=== PATIENT | female | born 1965 | race Caucasian/White ===

== ENCOUNTER 2016-12-09 13:47 | Emergency (ER) | payer MEDICAID, MEDICARE ==
[2016-12-09 13:56] VITALS: TEMP 98.5
--- NOTE | 2016-12-09 14:07 | ED ---
General Adult HPI - General Chief complaint: Chest Pain Stated complaint: Anxiety, Chest Pain Time Seen by Provider: 12/09/16 14:06 Source: patient, RN notes reviewed, old records reviewed Mode of arrival: wheelchair Limitations: no limitations - History of Present Illness Initial comments: This is a 51-year-old female the ER for evaluation. This patient presents for evaluation regarding chest pain and anxiety. Patient states she has no history of heart disease, occasionally smokes weed occasionally drinks alcohol no drug abuse. Patient states she was unaware to court today she has a court date today in a court case, patient states he really anxious of right-sided chest pain down her right arm and is currently concerned that she is having a heart attack. She rates the pain as burning, she feels mild bregma she has mild heartburn which she occasionally gets with her anxiety. But her main concern is that she's having heart attack., no prior history of chest pain - Related Data Home Medications Medication Instructions Recorded Confirmed ALPRAZolam [Xanax] 1 mg PO TID 12/09/16 12/09/16 Albuterol Inhaler [Ventolin Hfa 1 - 2 puff INHALATION RT-Q6H PRN 12/09/16 Inhaler] Cholecalciferol [Vitamin D3] 1,000 unit PO DAILY 12/09/16 12/09/16 Cyanocobalamin [Vitamin B-12] 500 mcg PO DAILY 12/09/16 12/09/16 Gabapentin [Neurontin] 300 mg PO TID 12/09/16 12/09/16 Multivitamins, Thera [Multivitamin 1 tab PO DAILY 12/09/16 12/09/16 (formulary)] Niacin 500 mg PO DAILY 12/09/16 12/09/16 [place]ott-3 Fatty Acids/Fish Oil [Fish 1 cap PO DAILY 12/09/16 12/09/16 Oil 1,000 mg Softgel] PARoxetine HCL [Paxil] 30 mg PO DAILY 12/09/16 12/09/16 Selenium 100 mcg PO DAILY 12/09/16 12/09/16 Tiotropium [place] [Spiriva 1 puff INHALATION RT-DAILY 12/09/16 12/09/16 Respimat] Zolpidem [Ambien] 10 mg PO HS PRN 12/09/16 12/09/16 oxyCODONE-APAP 10-325MG [Percocet 1 tab PO TID 12/09/16 12/09/16 10-325 mg] Allergies Allergy/AdvReac Type Severity Reaction Status Date / Time No Known Allergies Allergy Verified 12/09/16 14:33 Review of Systems ROS Statement: Those systems with pertinent positive or pertinent negative responses have been documented in the HPI. ROS Other: All systems not noted in ROS Statement are negative. Past Medical History Past Medical History: GERD/Reflux, Hearing Disorder / Deafness, Hyperlipidemia, Hypertension, Musculoskeletal Disorder, Osteoarthritis (OA), Respiratory Disorder, Thyroid Disorder Additional Past Medical History / Comment(s): THYROID NODULES testing was negative=no cancer. ACUTE BRONCHITIS in the past. EMPHYSEMA. Carpel Tunnel in bilat. lower arms. 4 herniated discs in back. History of Any Multi-Drug Resistant Organisms: None Reported Past Surgical History: Appendectomy, Tonsillectomy, Tubal Ligation Additional Past Surgical History / Comment(s): THYROID BIOPSY was done and was negative. COLONOSCOPY-COLON POLYPS x 2. Pinatal cyst removed on tailbone. Bottom of right foot surgery to look for glass that pt. had stepped on. 2 D&C' s. Past Anesthesia/Blood Transfusion Reactions: Motion Sickness Past Psychological History: Anxiety, Bipolar, Depression Smoking Status: Current every day smoker Past Alcohol Use History: Rare Past Drug Use History: Cocaine, Heroin, IV Drug Use, Marijuana, Opiates, Prescription Drug Abuse - Past Family History Mother History Unknown: Yes Family Medical History: Respiratory Disorder Additional Family Medical History / Comment(s): pulmonary embolism Father History Unknown: Yes Family Medical History: Coronary Artery Disease (CAD), Osteoarthritis (OA) Sister(s) History Unknown: Yes Family Medical History: Cancer Additional Family Medical History / Comment(s): Bilat. Mastectomy due to breast cancer. General Exam Limitations: no limitations General appearance: alert, in no apparent distress Head exam: Present: atraumatic, normocephalic, normal inspection Eye exam: Present: normal appearance, PERRL, EOMI. Absent: scleral icterus, conjunctival injection, periorbital swelling ENT exam: Present: normal exam, mucous membranes moist Neck exam: Present: normal inspection. Absent: tenderness, meningismus, lymphadenopathy Respiratory exam: Present: normal lung sounds bilaterally. Absent: respiratory distress, wheezes, rales, rhonchi, stridor Cardiovascular Exam: Present: regular rate, normal rhythm, normal heart sounds. Absent: systolic murmur, diastolic murmur, rubs, gallop, clicks GI/Abdominal exam: Present: soft, normal bowel sounds. Absent: distended, tenderness, guarding, rebound, rigid Extremities exam: Present: normal inspection, full ROM, normal capillary refill. Absent: tenderness, pedal edema, joint swelling, calf tenderness Back exam: Present: normal inspection Neurological exam: Present: alert, oriented X3, CN II-XII intact Psychiatric exam: Present: normal affect, normal mood Skin exam: Present: warm, dry, intact, normal color. Absent: rash Course Vital Signs 12/09/16 12/09/16 13:52 14:40 Temperature 98.5 F Pulse Rate 75 83 Respiratory 18 20 Rate Blood Pressure 119/75 129/87 O2 Sat by Pulse 97 Oximetry EKG Findings - EKG Comments: EKG Findings:: EKG shows no signs of 69, [place] 170, QRS 80, QTC 417 Medical Decision Making - Medical Decision Making 51 [id number] chest pain atypical chest pain right-sided chest pain right arm chest pain, EKG troponin x-ray are negative. Patient will be discharged home with anxiety attack secondary to stress of court date - Lab Data Result diagrams: 12/09/16 14:00 Lab Results 12/09/16 Range/Units 14:00 WBC 10.6 (3.8-10.6) k/uL RBC 4.10 (3.80-5.40) m/uL Hgb 13.7 (11.4-16.0) gm/dL Hct 40.6 (34.0-46.0) % MCV 98.9 (80.0-100.0) fL MCH 33.4 (25.0-35.0) pg MCHC 33.8 (31.0-37.0) g/dL RDW 13.0 (11.5-15.5) % Plt Count 291 (150-450) k/uL Neutrophils % 59 % Lymphocytes % 30 % Monocytes % 7 % Eosinophils % 2 % Basophils % 0 % Neutrophils # 6.2 (1.3-7.7) k/uL Lymphocytes # 3.2 (1.0-4.8) k/uL Monocytes # 0.7 (0-1.0) k/uL Eosinophils # 0.2 (0-0.7) k/uL Basophils # 0.1 (0-0.2) k/uL - Radiology Data Radiology results: report reviewed (Chest x-ray is negative for acute disease), image reviewed Disposition Clinical Impression: Atypical chest pain, Anxiety Disposition: HOME SELF-CARE Condition: Good Instructions: Chest Pain (ED) Referrals: None,Stated [Primary Care Provider] - 1-2 days
[2016-12-09] MEDS ORDERED: LORazepam 2 MG/ML SYRINGE IV STA (14:38)
[2016-12-09] MEDS ORDERED: MORPHINE SULFATE 4 MG/ML SYRINGE IV STA (14:38)
[2016-12-09 14:40] VITALS: BP 129/87; PULSE 83; RESP 20
[2016-12-09 14:49] LABS: Basophils # (A) 0.1 k/uL (0-0.2); Basophils % (A) 0 %; CH 33.3; CHCM 33.9; Eosinophils # (A) 0.2 k/uL (0-0.7); Eosinophils % (A) 2 %; HCT 40.6 % (34.0-46.0); HDW 2.11; HGB 13.7 gm/dL (11.4-16.0); Luc # (Auto) 0.27; Luc % (Auto) 3; Lymphocytes # (A) 3.2 k/uL (1.0-4.8); Lymphocytes % (A) 30 %; MCH 33.4 pg (25.0-35.0); MCHC 33.8 g/dL (31.0-37.0); MCV 98.9 fL (80.0-100.0); Mean Platelet Volume 7.6; Monocytes # (A) 0.7 k/uL (0-1.0); Monocytes % (A) 7 %; Neutrophils # (A) 6.2 k/uL (1.3-7.7); Neutrophils % (A) 59 %; WBC 10.6 k/uL (3.8-10.6)
[2016-12-09] MEDS ORDERED: KETOROLAC 30 MG/ML 1 ML VIAL IVP STA (14:55)
[2016-12-09 15:02] LABS: ALT 25 U/L (9-52); AST 16 U/L (14-36); Alkaline Phosphatase 45 U/L (38-126); Anion Gap 10 mmol/L; Blood Urea Nitrogen 13 mg/dL (7-17); Calcium 9.8 mg/dL (8.4-10.2); Carbon Dioxide 26 mmol/L (22-30); Chloride 105 mmol/L (98-107); Glucose 94 mg/dL (74-99); Magnesium 1.7 mg/dL (1.6-2.3); Non-African American GFR(MDRD) >60 (>60 ml/min/1.73 sqM); Potassium 4.3 mmol/L (3.5-5.1); Sodium 141 mmol/L (137-145); Total Bilirubin 0.6 mg/dL (0.2-1.3); Total Protein 7.1 g/dL (6.3-8.2)
--- NOTE | 2016-12-09 15:02 | XR ---
EXAMINATION TYPE: XR chest 2V DATE OF EXAM: 12/09/2016 COMPARISON: 10/19/2012 HISTORY: Shortness of breath TECHNIQUE: Frontal and lateral views of the chest are obtained. FINDINGS: Scattered senescent parenchymal changes noted. Hyperinflation compatible with COPD. No evidence for infiltrate. No evidence for atelectasis. Granuloma right midlung zone and right lower lobe are stable. Heart size is stable. Mediastinal structures are stable and grossly unremarkable. No evidence for hilar prominence. Degenerative changes dorsal spine. IMPRESSION: 1. No evidence for acute pulmonary disease.
[2016-12-09 15:09] LABS: Creatine Kinase 54 U/L (30-135)
[2016-12-09 15:15] LABS: Partial Thromboplastin Time 24.7 sec (22.0-30.0); Prothrombin Time 10.4 sec (9.0-12.0)
[2016-12-09 15:22] LABS: Creatine Kinase MB 0.5 ng/mL (0.0-2.4); Troponin I <0.012 ng/mL (0.000-0.034)
== END 2016-12-09 15:51 | disposition left against medical advice (07) ==
LOC: EC 13:47
DX: R07.89 Other chest pain (principal); F41.9 Anxiety disorder, unspecified; E78.5 Hyperlipidemia, unspecified; E07.9 Disorder of thyroid, unspecified; J43.9 Emphysema, unspecified; F32.9 Major depressive disorder, single episode, unspecified; F17.200 Nicotine dependence, unspecified, uncomplicated; Z79.891 Long term (current) use of opiate analgesic; Z79.899 Other long term (current) drug therapy; Z53.20 Procedure and treatment not carried out because of patient's decision for unspecified reasons
CPT/HCPCS: 99285; 96374; 36415; 93005; 83880; 80053; 82550; 82553; 83690; 83735; 84484; 85025; 85610; 85730; 71020; J2060

== ENCOUNTER 2017-05-17 16:15 | Inpatient (IN) | payer MEDICARE, MEDICAID ==
--- NOTE | 2017-05-17 17:23 | ED ---
General Adult HPI - General Chief complaint: Psychiatric Symptoms Stated complaint: Mental Health Time Seen by Provider: 05/17/17 17:02 Source: patient, RN notes reviewed Mode of arrival: ambulatory Limitations: no limitations - History of Present Illness Initial comments: Patient 52-year-old female who presents emergency room today with chief complaint of needing psychiatric evaluation. Patient does admit to a history of bipolar. She states that she's been more down the last 3 days. She states she's been feeling depressed. Having thoughts of hurting herself. Does admit to thoughts of suicide. Patient admits that she's been more argumentative and angry towards her boyfriend as well. Patient states that she has no intentions of harming anyone else. She denies any other complaints or symptoms currently. Patient denies any recent fever, chills, shortness of breath, chest pain, back pain, abdominal pain, nausea or vomiting, numbness or tingling, headaches or visual changes, or any other complaints. - Related Data Home Medications Medication Instructions Recorded Confirmed ALPRAZolam [Xanax] 1 mg PO AC-TID 12/09/16 05/17/17 Albuterol Inhaler [Ventolin Hfa 1 - 2 puff INHALATION RT-Q6H PRN 12/09/16 Inhaler] PARoxetine HCL [Paxil] 30 mg PO DAILY 12/09/16 05/17/17 Tiotropium [place] [Spiriva 1 cap INHALATION RT-DAILY 12/09/16 05/17/17 Respimat] Zolpidem [Ambien] 10 mg PO HS PRN 12/09/16 05/17/17 oxyCODONE-APAP 10-325MG [Percocet 1 tab PO TID 12/09/16 05/17/17 10-325 mg] Gabapentin 800 mg PO TID 05/17/17 05/17/17 Ibuprofen 800 mg PO TID PRN 05/17/17 05/17/17 Allergies Allergy/AdvReac Type Severity Reaction Status Date / Time No Known Allergies Allergy Verified 05/17/17 16:41 Review of Systems ROS Statement: Those systems with pertinent positive or pertinent negative responses have been documented in the HPI. ROS Other: All systems not noted in ROS Statement are negative. Past Medical History Past Medical History: GERD/Reflux, Hearing Disorder / Deafness, Hyperlipidemia, Hypertension, Musculoskeletal Disorder, Osteoarthritis (OA), Respiratory Disorder, Thyroid Disorder Additional Past Medical History / Comment(s): THYROID NODULES testing was negative=no cancer. ACUTE BRONCHITIS in the past. EMPHYSEMA. Carpel Tunnel in bilat. lower arms. 4 herniated discs in back. History of Any Multi-Drug Resistant Organisms: None Reported Past Surgical History: Appendectomy, Tonsillectomy, Tubal Ligation Additional Past Surgical History / Comment(s): THYROID BIOPSY was done and was negative. COLONOSCOPY-COLON POLYPS x 2. Pinatal cyst removed on tailbone. Bottom of right foot surgery to look for glass that pt. had stepped on. 2 D&C' s. Past Anesthesia/Blood Transfusion Reactions: Motion Sickness Past Psychological History: Anxiety, Bipolar, Depression Smoking Status: Current every day smoker Past Alcohol Use History: Rare Past Drug Use History: Cocaine, Heroin, IV Drug Use, Marijuana, Opiates, Prescription Drug Abuse - Past Family History Mother History Unknown: Yes Family Medical History: Respiratory Disorder Additional Family Medical History / Comment(s): pulmonary embolism Father History Unknown: Yes Family Medical History: Coronary Artery Disease (CAD), Osteoarthritis (OA) Sister(s) History Unknown: Yes Family Medical History: Cancer Additional Family Medical History / Comment(s): Bilat. Mastectomy due to breast cancer. General Exam - General Exam Comments Initial Comments: General: The patient is awake and alert, in no distress, and does not appear acutely ill. Eye: Pupils are equal, round and reactive to light, extra-ocular movements are intact. No nystagmus. There is normal conjunctiva bilaterally. No signs of icterus. Ears, nose, mouth and throat: There are moist mucous membranes and no oral lesions. Neck: The neck is supple, there is no tenderness or JVD. Cardiovascular: There is a regular rate and rhythm. No murmur, rub or gallop is appreciated. Respiratory: Lungs are clear to auscultation, respirations are non-labored, breath sounds are equal. No wheezes, stridor, rales, or rhonchi. Musculoskeletal: Normal ROM, no tenderness. Strength 5/5. Sensation intact. Pulses equal bilaterally 2+. Neurological: A&O x 3. CN II-XII intact, There are no obvious motor or sensory deficits. Coordination appears grossly intact. Speech is normal. Skin: Skin is warm and dry and no rashes or lesions are noted. Psychiatric: Cooperative. Limitations: no limitations Course Vital Signs 05/17/17 16:39 Temperature 98.9 F Pulse Rate 93 Respiratory 18 Rate Blood Pressure 123/97 O2 Sat by Pulse 99 Oximetry Medical Decision Making - Medical Decision Making Patient has been seen by mental health here in the emergency room. They've recommended the patient be admitted. Patient willing to sign herself in. Disposition Clinical Impression: Suicidal ideation Disposition: ADMITTED IP TO THIS HOSP Condition: Stable Referrals: None,Stated [Primary Care Provider] - 1-2 days
[2017-05-17] MEDS ORDERED: ZIPRASIDONE 20 MG VIAL IM PRN (18:39)
[2017-05-17] MEDS ORDERED: ACETAMINOPHEN TAB 325 MG TAB PO PRN (18:39)
[2017-05-17] MEDS ORDERED: MAGNESIUM HYDROXIDE 2,400 MG/10 ML CUP PO PRN (18:39)
[2017-05-17] MEDS ORDERED: MAG HYDROX/AL HYDROX/SIMETH 30 ML CUP PO PRN (18:39)
[2017-05-17 18:51] LABS: Amphetamine Screen,Urine Not Detected (NotDetected); Barbiturate Screen,Urine Not Detected (NotDetected); Benzodiazepines Screen,Urine Detected (NotDetected); Cocaine Screen,Urine Not Detected (NotDetected); Methadone Screen, Urine Not Detected (NotDetected); Opiate Screen,Urine Detected (NotDetected); Oxycodone Screen, Urine Detected (NotDetected); Phencyclidine Screen,Urine Not Detected (NotDetected); Tricyclic Antidepressant,Urine Not Detected (NotDetected); Urn Cannabinoid Scrn Detected (NotDetected)
[2017-05-17 18:54] LABS: Appearance,Urine Clear (Clear); Bilirubin,Urine Negative (Negative); Blood,Urine Negative (Negative); Color,Urine Yellow; Glucose,Urine (UA) Negative (Negative); Ketones,Urine Negative (Negative); Leukocyte Esterase,Urine Trace (Negative); Mucus,Urine Rare /hpf; Nitrite,Urine Negative (Negative); PH, Urine 5.5 (5.0-8.0); Protein,Urine Negative (Negative); RBC,Urine 2 /hpf (0-5); Specific Gravity,Urine 1.025 (1.001-1.035); Squamous Epithelial Cell,Urine 1 /hpf (0-4); Urobilinogen,Urine <2.0 mg/dL (<2.0); WBC,Urine 1 /hpf (0-5)
[2017-05-17] MEDS: LORazepam 1 MG TAB PO SCH (20:58)
[2017-05-17] MEDS: GABAPENTIN 400 MG CAP PO SCH (20:58)
[2017-05-18] MEDS: IBUPROFEN 800 MG TAB PO PRN (06:16)
[2017-05-18] MEDS: LORazepam 1 MG TAB PO PRN ×2 (06:19→14:44)
[2017-05-18] MEDS ORDERED: IPRATROPIUM 0.5 MG/2.5 ML NEBU INHALATION SCH (08:00)
[2017-05-18] MEDS: NICOTINE 14MG/24HR PATCH TRANSDERM SCH (08:41)
[2017-05-18] MEDS: HYDROcodone/APAP 5-325MG 1 EACH TAB PO PRN ×2 (08:41→14:44)
[2017-05-18] MEDS: GABAPENTIN 400 MG CAP PO SCH ×3 (08:42→21:09)
[2017-05-18] MEDS: LORazepam 1 MG TAB PO SCH ×3 (08:43→21:09)
[2017-05-18] MEDS: ALBUTEROL INHALER 60 PUFF/8 GM INHALER INHALATION PRN ×2 (09:00→16:49)
[2017-05-18] MEDS ORDERED: PARoxetine 10 MG TAB PO SCH (09:00)
[2017-05-18] MEDS: TIOTROPIUM 18 MCG/PUFF INHALER INHALATION SCH (09:01)
[2017-05-18 09:29] LABS: Basophils # (A) 0.1 k/uL (0-0.2); Basophils % (A) 1 %; Eosinophils # (A) 0.2 k/uL (0-0.7); Eosinophils % (A) 2 %; HCT 45.4 % (34.0-46.0); HGB 14.4 gm/dL (11.4-16.0); Lymphocytes # (A) 2.2 k/uL (1.0-4.8); Lymphocytes % (A) 27 %; MCH 31.5 pg (25.0-35.0); MCHC 31.6 g/dL (31.0-37.0); MCV 99.6 fL (80.0-100.0); Mean Platelet Volume 7.2; Monocytes # (A) 0.6 k/uL (0-1.0); Monocytes % (A) 8 %; Neutrophils % (A) 61 %; Platelet Count 328 k/uL (150-450); RBC 4.56 m/uL (3.80-5.40); RDW 12.5 % (11.5-15.5); WBC 8.2 k/uL (3.8-10.6)
[2017-05-18 09:37] LABS: ALT 17 U/L (9-52); AST 17 U/L (14-36); Albumin 4.3 g/dL (3.5-5.0); Alkaline Phosphatase 52 U/L (38-126); Anion Gap 11 mmol/L; Blood Urea Nitrogen 20 mg/dL (7-17); Calcium 10.1 mg/dL (8.4-10.2); Carbon Dioxide 30 mmol/L (22-30); Chloride 101 mmol/L (98-107); Cholesterol 216 mg/dL (<200); Glucose 130 mg/dL (74-99); HDL Cholesterol 70 mg/dL (40-60); LDL Cholesterol,Calculated 114 mg/dL (0-99); Potassium 4.6 mmol/L (3.5-5.1); Sodium 142 mmol/L (137-145); Total Bilirubin 0.7 mg/dL (0.2-1.3); Triglycerides 161 mg/dL (<150)
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
--- NOTE | 2017-05-18 17:32 | P.CONS ---
History of Present Illness - Reason for Consult Hyperlipidemia - History of Present Illness 52-year-old pleasant female was admitted for bipolar disorder and patient has history of osteoarthritis in the neck back. Patient denied any gastric reflux disease had history of hyperlipidemia stopped taking her statin which was actually discontinued. Patient LDL is bit elevated at 100 but patient wanted to take statin again. Dietary counseling was provided patient LDL should be well-controlled with diet itself. Patient denied any fever, chills, nausea, vomiting. Review of Systems REVIEW OF SYSTEMS: CONSTITUTIONAL: No fever, no malaise, no fatigue. HEENT: No recent visual problems or hearing problems. Denied any sore throat. CARDIOVASCULAR: No chest pain, orthopnea, PND, no palpitations, no syncope. PULMONARY: No shortness of breath, no cough, no hemoptysis. GASTROINTESTINAL: No diarrhea, no nausea, no vomiting, no abdominal pain. Normoactive bowel sounds. NEUROLOGICAL: No headaches, no weakness, no numbness. HEMATOLOGICAL: Denies any bleeding or petechiae. GENITOURINARY: Denies any burning micturition, frequency, or urgency. MUSCULOSKELETAL/RHEUMATOLOGICAL: Denies any joint pain, swelling, or any muscle pain. ENDOCRINE: Denies any polyuria or polydipsia. The rest of the 14-point review of systems is negative. Past Medical History Past Medical History: GERD/Reflux, Hearing Disorder / Deafness, Hyperlipidemia, Hypertension, Musculoskeletal Disorder, Osteoarthritis (OA), Respiratory Disorder, Thyroid Disorder Additional Past Medical History / Comment(s): THYROID NODULES testing was negative=no cancer. uti. in past had gerd, hypertension and hypercholestremia not a problem now. ACUTE BRONCHITIS in the past. EMPHYSEMA. Carpel Tunnel in bilat. lower arms. 4 herniated discs in back. History of Any Multi-Drug Resistant Organisms: None Reported Past Surgical History: Appendectomy, Tonsillectomy, Tubal Ligation Additional Past Surgical History / Comment(s): THYROID BIOPSY was done and was negative. COLONOSCOPY-COLON POLYPS x 2. Pilonidal cyst removed on tailbone. Bottom of right foot surgery to look for glass that pt. had stepped on. 2 D&C' s. Past Anesthesia/Blood Transfusion Reactions: Motion Sickness Smoking Status: Current every day smoker - Past Family History Mother History Unknown: Yes Family Medical History: Respiratory Disorder Additional Family Medical History / Comment(s): pulmonary embolism Father History Unknown: Yes Family Medical History: Coronary Artery Disease (CAD), Osteoarthritis (OA) Sister(s) History Unknown: Yes Family Medical History: Cancer Additional Family Medical History / Comment(s): Bilat. Mastectomy due to breast cancer. Medications and Allergies Home Medications Medication Instructions Recorded Confirmed Type ALPRAZolam [Xanax] 1 mg PO AC-TID 12/09/16 05/17/17 History Albuterol Inhaler [Ventolin Hfa 1 - 2 puff INHALATION RT-Q6H PRN 12/09/16 History Inhaler] PARoxetine HCL [Paxil] 30 mg PO DAILY 12/09/16 05/17/17 History Tiotropium [place] [Spiriva 1 cap INHALATION RT-DAILY 12/09/16 05/17/17 History Respimat] Zolpidem [Ambien] 10 mg PO HS PRN 12/09/16 05/17/17 History oxyCODONE-APAP 10-325MG [Percocet 1 tab PO TID 12/09/16 05/17/17 History 10-325 mg] Gabapentin 800 mg PO TID 05/17/17 05/17/17 History Ibuprofen 800 mg PO TID PRN 05/17/17 05/17/17 History Allergies Allergy/AdvReac Type Severity Reaction Status Date / Time No Known Allergies Allergy Verified 05/17/17 21:36 Physical Exam Vitals: Vital Signs Temp Pulse Resp BP Pulse Ox 05/18/17 06:18 98.8 F 88 14 112/77 05/17/17 18:40 98.0 F 90 16 137/99 98 PHYSICAL EXAMINATION: GENERAL: The patient is alert and oriented x3, not in any acute distress. Well developed, well nourished. HEENT: Pupils are round and equally reacting to light. EOMI. No scleral icterus. No conjunctival pallor. Normocephalic, atraumatic. No pharyngeal erythema. No thyromegaly. CARDIOVASCULAR: S1 and S2 present. No murmurs, rubs, or gallops. PULMONARY: Chest is clear to auscultation, no wheezing or crackles. ABDOMEN: Soft, nontender, nondistended, normoactive bowel sounds. No palpable organomegaly. MUSCULOSKELETAL: No joint swelling or deformity. EXTREMITIES: No cyanosis, clubbing, or pedal edema. NEUROLOGICAL: Gross neurological examination did not reveal any focal deficits. SKIN: No rashes. Results CBC & Chem 7: 05/18/17 08:46 05/18/17 08:46 Labs: Abnormal Lab Results - Last 24 Hours (Table) 05/17/17 05/17/17 05/18/17 Range/Units 18:24 18:24 08:46 BUN 20 H (7-17) mg/dL Glucose 130 H (74-99) mg/dL Triglycerides 161 H (<150) mg/dL Cholesterol 216 H (<200) mg/dL LDL Cholesterol, Calc 114 H (0-99) mg/dL HDL Cholesterol 70 H (40-60) mg/dL Ur Leukocyte Esterase Trace H (Negative) Urine Mucus Rare H (None) /hpf Urine Opiates Screen Detected H (NotDetected) Ur Oxycodone Screen Detected H (NotDetected) U Benzodiazepines Scrn Detected H (NotDetected) U Marijuana (THC) Screen Detected H (NotDetected) Assessment and Plan Plan: -Mild hyperlipidemia: Dietary counseling was provided patient was started on low -dose statin this can be discontinued if LDL comes down -Bipolar disorder management as per primary service -COPD without any acute exacerbation can use to smoke" in cessation counseling was provided -Multiple nonprescription drug abuse: Counseling was provided Thank you for letting me participate in patient's care, no further recommendations from medicine perspective we'll sign off at this time please call us back if needed
[2017-05-18 20:30] LABS: Hemoglobin A1C 5.4 % (4.0-6.0)
[2017-05-18] MEDS: ATORVASTATIN 20 MG TAB PO SCH (21:09)
[2017-05-19] MEDS: HYDROcodone/APAP 5-325MG 1 EACH TAB PO PRN ×3 (06:16→21:03)
[2017-05-19] MEDS: LORazepam 1 MG TAB PO PRN ×3 (06:17→21:02)
[2017-05-19] MEDS ORDERED: LURASIDONE 40 MG TAB PO SCH (09:00)
[2017-05-19] MEDS: NICOTINE 14MG/24HR PATCH TRANSDERM SCH (09:10)
[2017-05-19] MEDS: lamoTRIgine 25 MG TAB PO SCH (09:11)
[2017-05-19] MEDS: GABAPENTIN 400 MG CAP PO SCH ×3 (09:11→21:02)
[2017-05-19] MEDS: LORazepam 1 MG TAB PO SCH ×3 (09:13→21:56)
[2017-05-19] MEDS: TIOTROPIUM 18 MCG/PUFF INHALER INHALATION SCH (10:17)
[2017-05-19] MEDS: ALBUTEROL INHALER 60 PUFF/8 GM INHALER INHALATION PRN ×2 (10:17→21:07)
--- NOTE | 2017-05-19 14:03 | P.PN ---
Progress Note - Text Progress Note Date: 05/19/17 Interval History: Patient is a 52-year-old female who was seen today and states that she was sleeping when was she was awoken early this morning by another patient. Patient states that she is not feeling shaky or jittery. She states that she continues to have some racing thoughts but is not feeling suicidal. She states that she is not feeling as depressed. She is eating and has been attending groups. Mental Status: Appearance/Attitude: Patient is appropriately dressed, makes good eye contact and is cooperative Behavior: Patient does not display any psychomotor agitation or retardation. Speech/Language: Patient's speech is spontaneous and of normal volume and rhythm and she is coherent Thought Process: Patient is goal-directed and no loose associations or flight of ideas Thought Content: Patient denies auditory or visual hallucinations and no evidence of delusions or paranoid ideation. Patient states that she still has some racing thoughts, she was sleeping well last evening until she was awakened early in the morning by another patient. Patient states that she is eating well. She states that she is not feeling anxious or jittery Suicidal/Homicidal Ideation: Patient denies any current suicidal or homicidal ideation Sensorium/Cognition: Patient is alert and oriented to person, place, and time and her recent and remote memory are grossly intact Mood/Affect: Patient's mood remains depressed and her affect is blunted Insight/Judgment: Patient's insight and judgment are intact Assessment: Patient reports no side effects from beginning Lamictal amplitude and states that she was sleeping well until awakened by another patient. Patient states that she is not feeling shaky or jittery on the Ativan. Patient states she continues to have some racing thoughts but denies any suicidal ideation. Patient has been attending groups and activities. Patient was begun on a statin by the biomedical engineer due to an elevated lipid panel. Plan: Patient will continue on Mc till 25 mg daily, will change her look to do to dinner hours the patient states that she does not typically eat breakfast when she is at home. We will decrease the patient's Ativan tomorrow to 1 mg twice a day in a slow titration off of benzodiazepines. Patient will also begin melatonin 3 mg at bedtime to assist with her sleep. Patient continues to require hospitalization to further stabilize her mood.
[2017-05-19] MEDS: IBUPROFEN 800 MG TAB PO PRN (18:57)
[2017-05-19] MEDS: ATORVASTATIN 20 MG TAB PO SCH (21:02)
[2017-05-19] MEDS: MELATONIN 3 MG TABLET PO SCH (21:02)
[2017-05-20] MEDS: NICOTINE 14MG/24HR PATCH TRANSDERM SCH (07:54)
[2017-05-20] MEDS: GABAPENTIN 400 MG CAP PO SCH ×3 (07:54→22:19)
[2017-05-20] MEDS: lamoTRIgine 25 MG TAB PO SCH (07:55)
[2017-05-20] MEDS: LORazepam 1 MG TAB PO SCH ×2 (07:55→22:19)
[2017-05-20] MEDS: HYDROcodone/APAP 5-325MG 1 EACH TAB PO PRN ×3 (07:55→22:51)
[2017-05-20] MEDS: IBUPROFEN 800 MG TAB PO PRN ×2 (07:55→14:27)
[2017-05-20] MEDS: ALBUTEROL INHALER 60 PUFF/8 GM INHALER INHALATION PRN ×2 (09:57→21:04)
[2017-05-20] MEDS: TIOTROPIUM 18 MCG/PUFF INHALER INHALATION SCH (09:57)
--- NOTE | 2017-05-20 11:44 | P.PN ---
Progress Note - Text Progress Note Date: 05/20/17 Interval History: Patient is a 52-year-old female who was seen today and reports that she slept well last evening, states she is not having any racing thoughts is not feeling depressed and has no suicidal ideation. She states she' s been attending some groups and has been participating. Patient reports no side effects from her medications. Patient states that she is not having any shakes and is not feeling tremulous. Mental Status: Appearance/Attitude: Patient is appropriately dressed made good eye contact and was cooperative. Behavior: Patient does not exhibit psychomotor agitation or retardation. Speech/Language: Patient's speech is spontaneous and of normal volume and rhythm and she is coherent. Thought Process: Patient is goal-directed, no evidence of loose associations or flight of ideas Thought Content: Patient denies any auditory or visual hallucinations and no delusions or paranoid ideation or elicited. The patient is eating and sleeping well. Patient denies any tremulousness or shaking. She states she is no longer feeling overwhelmed and denies having racing thoughts. She states she is not feeling as irritable or angry. Suicidal/Homicidal Ideation: Patient denies any current suicidal or homicidal ideation Sensorium/Cognition: Patient is alert and oriented to person, place, and time and her recent and remote memory are grossly intact Mood/Affect: Patient's mood is euthymic and her affect is appropriate Insight/Judgment: Patient's insight and judgment are fair. Assessment: Patient tending 50% in groups and is participating. Patient states that she slept 6 hours last night and states that she is no longer feeling agitated or angry, she is tolerating the decrease in her dose of Ativan. Patient states that she is not having racing thoughts and denies any suicidal or homicidal ideation. Patient reports no side effects from the medication and none were noted. Plan: Patient will continue on what to to 20 mg at dinnertime and Lamictal 25 mg daily to stabilize her mood. Patient's Ativan will be decreased to 1 mg twice a day and the when necessary Ativan will be discontinued. Patient should be continued on a taper off of Ativan to complete her benzodiazepine taper. Patient and I discussed discharge for tomorrow and she was agreeable with this plan and states that she will continue to follow up with [facility] , avoid all drugs and alcohol. Ursula was agreeable to continuing to have her Ativan tapered.
[2017-05-20] MEDS ORDERED: LURASIDONE 40 MG TAB PO SCH (18:00)
[2017-05-20] MEDS ORDERED: LORazepam 0.5 MG TAB PO SCH (21:00)
[2017-05-20] MEDS: ATORVASTATIN 20 MG TAB PO SCH (22:18)
[2017-05-20] MEDS: MELATONIN 3 MG TABLET PO SCH (22:19)
[2017-05-21 06:59] VITALS: BP 113/77; PULSE 79; RESP 12; TEMP 98.7
[2017-05-21] MEDS: HYDROcodone/APAP 5-325MG 1 EACH TAB PO PRN (07:52)
[2017-05-21] MEDS: NICOTINE 14MG/24HR PATCH TRANSDERM SCH (07:52)
[2017-05-21] MEDS: GABAPENTIN 400 MG CAP PO SCH (07:53)
[2017-05-21] MEDS: LORazepam 1 MG TAB PO SCH (07:53)
[2017-05-21] MEDS: lamoTRIgine 25 MG TAB PO SCH (07:53)
[2017-05-21] MEDS: TIOTROPIUM 18 MCG/PUFF INHALER INHALATION SCH (08:14)
[2017-05-21] MEDS: ALBUTEROL INHALER 60 PUFF/8 GM INHALER INHALATION PRN (08:14)
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
== END 2017-05-21 10:20 | disposition home or self-care (01) | DRG 885 ==
LOC: EC 16:15 → 3MHU 18:33
PROVIDERS: ADMIT Psychiatry & Neurology Psychiatry; ATTEND Psychiatry & Neurology Psychiatry
DX: F31.9 Bipolar disorder, unspecified (principal); F11.20 Opioid dependence, uncomplicated; R45.851 Suicidal ideations; E07.9 Disorder of thyroid, unspecified; E78.5 Hyperlipidemia, unspecified; M19.90 Unspecified osteoarthritis, unspecified site; K21.9 Gastro-esophageal reflux disease without esophagitis; I10 Essential (primary) hypertension; F12.20 Cannabis dependence, uncomplicated; F41.9 Anxiety disorder, unspecified; J43.9 Emphysema, unspecified; F17.200 Nicotine dependence, unspecified, uncomplicated; G62.9 Polyneuropathy, unspecified; M47.9 Spondylosis, unspecified; H91.90 Unspecified hearing loss, unspecified ear; Z79.899 Other long term (current) drug therapy; Z81.8 Family history of other mental and behavioral disorders; Z80.3 Family history of malignant neoplasm of breast; Z82.49 Family history of ischemic heart disease and other diseases of the circulatory system; Z91.19 Patient's noncompliance with other medical treatment and regimen; Z62.810 Personal history of physical and sexual abuse in childhood; Z91.410 Personal history of adult physical and sexual abuse; Z81.1 Family history of alcohol abuse and dependence; Z90.49 Acquired absence of other specified parts of digestive tract; Z98.51 Tubal ligation status; Z91.5 Personal history of self-harm; Z65.3 Problems related to other legal circumstances; Z86.010 Personal history of colon polyps; Z71.3 Dietary counseling and surveillance; Z87.440 Personal history of urinary (tract) infections; Z79.1 Long term (current) use of non-steroidal anti-inflammatories (NSAID)
CPT/HCPCS: 80053; 80061; 80306; 81001; 81025; 82075; 83036; 84443; 85025; 94640; 99285

== ENCOUNTER 2017-06-11 11:42 | Emergency (ER) | payer MEDICAID, MEDICARE ==
[2017-06-11 11:46] VITALS: BP 137/93; PULSE 82; RESP 20; TEMP 98.1
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
== END 2017-06-11 12:30 | disposition home or self-care (01) ==
LOC: EC 11:42
DX: T25.221A Burn of second degree of right foot, initial encounter (principal); J43.9 Emphysema, unspecified; H91.90 Unspecified hearing loss, unspecified ear; F31.9 Bipolar disorder, unspecified; F41.9 Anxiety disorder, unspecified; F17.200 Nicotine dependence, unspecified, uncomplicated; Z79.891 Long term (current) use of opiate analgesic; Z79.899 Other long term (current) drug therapy; Z87.39 Personal history of other diseases of the musculoskeletal system and connective tissue; X10.2XXA Contact with fats and cooking oils, initial encounter; Y92.009 Unspecified place in unspecified non-institutional (private) residence as the place of occurrence of the external cause
CPT/HCPCS: 16000; 99283

== ENCOUNTER → 2018-04-21 | Outpatient (CLI) | payer MEDICARE, MEDICAID ==
--- NOTE | 2018-04-24 14:36 | MM ---
Reason for exam: screening (asymptomatic). Last mammogram was performed 3 years ago. History: Patient is postmenopausal. Family history of breast cancer in sister at age 62 and breast cancer in aunt. Took hormonal contraceptives for 15 years. MG 3D Screening Mammo W/Cad Bilateral CC and MLO view(s) were taken. Prior study comparison: April 16, 2015, bilateral MG 3d screening mammo w/cad. July 22, 2010, [facility] DIGITAL LEFT BREAST MAMMOGRAM w/CAD. The breast tissue is heterogeneously dense. This may lower the sensitivity of mammography. No significant changes when compared with prior studies. ASSESSMENT: Benign, BI-RAD 2 RECOMMENDATION: Routine screening mammogram of both breasts in 1 year.
== END | disposition home or self-care (01) ==
LOC: RADMAMWWP 16:28
PROVIDERS: ATTEND Family Medicine
DX: Z12.31 Encounter for screening mammogram for malignant neoplasm of breast (principal)
CPT/HCPCS: 77063; 77067

== ENCOUNTER 2019-04-05 10:28 | Emergency (ER) | payer MEDICARE ==
[2019-04-05 10:34] VITALS: BP 128/89; PULSE 91; RESP 16; TEMP 98
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
[2019-04-05] MEDS ORDERED: KETOROLAC 30 MG/ML 1 ML VIAL IM STA (12:08)
== END 2019-04-05 12:16 | disposition home or self-care (01) ==
LOC: EC 10:28
DX: S20.212A Contusion of left front wall of thorax, initial encounter (principal); J44.9 Chronic obstructive pulmonary disease, unspecified; H91.90 Unspecified hearing loss, unspecified ear; G40.909 Epilepsy, unspecified, not intractable, without status epilepticus; M19.90 Unspecified osteoarthritis, unspecified site; F31.9 Bipolar disorder, unspecified; F41.0 Panic disorder [episodic paroxysmal anxiety]; F17.200 Nicotine dependence, unspecified, uncomplicated; Z79.1 Long term (current) use of non-steroidal anti-inflammatories (NSAID); Z79.899 Other long term (current) drug therapy; Y04.0XXA Assault by unarmed brawl or fight, initial encounter
CPT/HCPCS: 71101; 99284; 96372; J1885

== ENCOUNTER → 2020-08-14 | Outpatient (CLI) | payer MEDICARE, OTHER ==
--- NOTE | 2020-08-21 10:22 | P.ARTDOP ---
Arterial Doppler LOWER EXTREMITY ARTERIAL DOPPLER: DATE OF SERVICE: 08/14/2020 Reason for study: Bilateral calf claudication. Doppler waveforms: Multiphasic bilaterally throughout with good toe waveforms. Pulse volume recording: []. Pressure gradients: None. Ankle-brachial indices: Greater than 1 bilaterally. Toe brachial indices: 0.92 on the right, 0.68 on the left Impression: Normal study.
== END | disposition home or self-care (01) ==
LOC: RADUSWWP 10:14
PROVIDERS: ATTEND Family Medicine
DX: I73.9 Peripheral vascular disease, unspecified (principal)
CPT/HCPCS: 93922

== ENCOUNTER → 2023-05-19 | Outpatient (CLI) | payer MEDICARE ==
--- NOTE | 2023-05-20 12:28 | US ---
EXAMINATION TYPE: US pelvis complete transvag DATE OF EXAM: 05/19/2023 COMPARISON: NONE CLINICAL INDICATION: Female, 58 years old with history of N98.1 HYPERSTIMULATION OF OVARIES; palpable area during pelvic exam TECHNIQUE: Transvaginal (TV) and Transabdominal (TA) . Transabdominal sonographic images of the pel vis were acquired. Transvaginal sonographic images were medically necessary to better assess the fol lowing anatomy: Ovaries Date of LMP: 17 years ago EXAM MEASUREMENTS: Uterus: 5.9x3.0x4.2 cm Endometrial Stripe: 0.4 cm Right Ovary: obscured by bowel Left Ovary: obscured by bowel [employer] Shoes Supervisor notes: Exam limited by bowel gas 1. Uterus: Retroverted and otherwise wnl. However, there is somewhat prominent hypoechoic appearance along the endocervical region. 2. Endometrium: wnl 3. Right Ovary: Obscured by overlying bowel gas 4. Left Ovary: Obscured by overlying bowel gas 5. Bilateral Adnexa: Obscured by overlying bowel gas 6. Posterior cul-de-sac: wnl IMPRESSION: 1. Somewhat prominent hypoechoic appearance along the endocervical region. This may be normal anatomi c variation. Consider correlation with Pap smear. 2. Retroverted uterus. Thin endometrial stripe. 3. Both ovaries are obscured by bowel gas and could not be evaluated.
--- NOTE | 2023-05-21 19:18 | MM ---
Reason for Exam: Screening (asymptomatic). Last mammogram was performed 5 year(s) and 1 month(s) ago. Patient History: Menarche at age 10. First Full-Term at age 17. Postmenopausal. Patient has history of breast feeding. Patient used Hormonal Contraceptives for 15 years. Maternal aunt had breast cancer. Sister had breast cancer, age 62. Risk Values: Lien 5 year model risk: 2.7%. NCI Lifetime model risk: 13.2%. Prior Study Comparison: 07/22/2010 Left Diagnostic Mammogram, [facility]. 04/16/2015 Bilateral Screening Mammogram, [facility]. 04/21/2018 Bilateral Screening Mammogram, [facility]. Tissue Density: The breast tissue is heterogeneously dense. This may lower the sensitivity of mammography. Findings: Analyzed By CAD. There is no suspicious group of microcalcifications or new suspicious mass in either breast. Overall Assessment: Negative, BI-RAD 1 Management: Screening Mammogram of both breasts in 1 year. . Patient should continue monthly self-breast exams. A clinical breast exam by your physician is recommended on an annual basis. This exam should not preclude additional follow-up of suspicious palpable abnormalities. Note on Lien scores and lifetime risk: 1. A Lien score greater than 3% is considered moderate risk. If this is the case, consider specialist referral to assess eligibility for a risk reducing agent. 2. If overall lifetime risk for the development of breast cancer is 20% or higher, the patient may qualify for future screening with alternating mammogram and breast MRI. Electronically signed and approved by: Marguerite Arnold M.D. Radiologist
== END | disposition home or self-care (01) ==
LOC: RADUSWWP 14:59
PROVIDERS: ATTEND Family Medicine
DX: Z12.31 Encounter for screening mammogram for malignant neoplasm of breast (principal); N85.4 Malposition of uterus; N98.1 Hyperstimulation of ovaries; Z80.3 Family history of malignant neoplasm of breast; Z78.0 Asymptomatic menopausal state
CPT/HCPCS: 76830; 76856; 77063; 77067

== ENCOUNTER → 2023-11-25 | Outpatient (CLI) | payer MEDICARE ==
--- NOTE | 2023-11-25 16:40 | XR ---
EXAMINATION TYPE: XR chest 2V DATE OF EXAM: 11/25/2023 COMPARISON: 04/05/2019 HISTORY: 58-year-old female R07.9, chest pain TECHNIQUE: Frontal and lateral views FINDINGS: Heart normal size. Aorta and pulmonary vasculature within normal limits. Unchanged calcified granulom a at the right lower lung. Streaky atelectasis or scarring at the lung bases is unchanged. Hyperinfla tion. No consolidation or pleural effusion. IMPRESSION: COPD and chronic changes. Old calcified granuloma at the right lung base. No definite acute process.
--- NOTE | 2023-11-25 16:47 | XR ---
EXAMINATION TYPE: XR wrist complete LT DATE OF EXAM: 11/25/2023 COMPARISON: NONE HISTORY: 58-year-old female R52, wrist pain and painful lump near the ulnar styloid process. TECHNIQUE: 4 views FINDINGS: Mild early degenerative spurring first CMC and triscaphe joints. There is soft tissue nodul arity along the dorsal aspect of the breast. No soft tissue calcifications. No acute fracture, disloc ation, or dislocation. IMPRESSION: 1. Soft tissue protuberance along the ulnar and dorsal aspect of the wrist. No underlying acute osseo us abnormality seen. 2. Minimal degenerative spurring at the base of the thumb.
== END | disposition home or self-care (01) ==
LOC: RADXRMAIN 13:41
PROVIDERS: ATTEND Internal Medicine
DX: J44.9 Chronic obstructive pulmonary disease, unspecified (principal); J84.10 Pulmonary fibrosis, unspecified; M25.742 Osteophyte, left hand; R07.9 Chest pain, unspecified
CPT/HCPCS: 71046

== ENCOUNTER → 2023-12-29 | Outpatient (CLI) | payer MEDICARE, OTHER ==
--- NOTE | 2023-12-29 15:54 | US ---
EXAMINATION TYPE: US abdomen complete DATE OF EXAM: 12/29/2023 COMPARISON: NONE CLINICAL INDICATION: Female, 58 years old with history of R10.84 GENERALIZED ABDOMINAL PAIN; pain TECHNIQUE: Grayscale and color Doppler imaging of the abdomen was performed. FINDINGS: EXAM MEASUREMENTS: Liver Length: 15.3 cm Gallbladder Wall: .2 cm CBD: .6 cm Spleen: 9.4 cm Right Kidney: 10.6 x 4.8 x 4.4 cm Left Kidney: 10.1 x 4.2 x 4.1 cm Pancreas: wnl Liver: Obscured by overlying bowel gas Gallbladder: No stones seen Evidence for sonographic Cordon's sign: No CBD: wnl Spleen: wnl Right Kidney: No hydronephrosis or masses seen Left Kidney: No hydronephrosis or masses seen Upper IVC: wnl Abd Aorta: wnl The liver is homogenous. The intrahepatic portion of the IVC and proximal abdominal aorta are within normal limits. There is no evidence of cholelithiasis. Common bile duct is unremarkable. The visu alized portions of the pancreas are homogenous. The spleen is unremarkable. Kidneys are symmetric a nd free of hydronephrosis. No renal lesions are seen. IMPRESSION: No evidence for acute process. [facility] Troy Paige, Workstation: [id number], 12/29/2023 3:52 PM
== END | disposition home or self-care (01) ==
LOC: RADUSWWP 15:10
PROVIDERS: ATTEND Internal Medicine
DX: R10.84 Generalized abdominal pain (principal)
CPT/HCPCS: 76700